=== PATIENT | male | born 1985 | race African-American/Black ===

== ENCOUNTER 2022-09-27 04:19 | Emergency (ER) | payer MEDICARE, MEDICAID ==
[~2022-09-27] VITALS: Ht 172.7 cm; Wt 67.0 kg
[2022-09-27] MEDS ORDERED: ACETAMINOPHEN 325MG TABLET PO STA (05:11)
[2022-09-27] MEDS ORDERED: SODIUM CHLORIDE 0.9% 1000ML BAG (SEPSIS BOLUS) IV ONE (05:15)
[2022-09-27] MEDS ORDERED: CEFTRIAXONE 1 G PREMIX 50 ML IV ONE (05:15)
[2022-09-27 06:07] LABS: BASOPHILS % 0.7 % (0.0-2.0); EOSINOPHILS % 3.6 % (0.0-5.0); HEMATOCRIT. 42.9 % (42.0-52.0); HEMOGLOBIN. 13.9 g/dL (14.0-18.0); LYMPHOCYTES % 19.3 % (20.0-50.0); MEAN CORPUSCULAR HEMOGLOBIN 26.1 pg (28.0-32.0); MEAN CORPUSCULAR VOLUME 80.4 fL (80.0-94.0); MEAN PLATELET VOLUME 7.4 fl (7.4-10.4); MONOCYTES % 9.9 % (2.0-8.0); NEUTROPHILS % 66.5 % (40.0-76.0); PLATELET 332 x1000/uL (130-400); RED BLOOD CELL COUNT 5.34 mill/uL (4.7-6.1); RED CELL DISTRIBUTION WIDTH 14.3 % (11.6-14.6)
[2022-09-27 06:14] LABS: CHLORIDE 101 mEq/L (98-107)
[2022-09-27 06:17] LABS: INR 1.1; PROTHROMBIN TIME 12.2 sec (9.6-11.0)
[2022-09-27 06:23] LABS: ETHANOL BLOOD < 10 mg/dL
[2022-09-27] MEDS ORDERED: ACET-2708 MT (08:59)
[2022-09-27] MEDS ORDERED: SULF1TAB48 MT (08:59)
[2022-09-27 09:15] VITALS: BP 120/82
== END 2022-09-27 09:13 | disposition home or self-care (01) ==
LOC: ER 04:19 → CANBEDREQ 09:55
DX: L03.115 Cellulitis of right lower limb (principal); I49.8 Other specified cardiac arrhythmias; F43.10 Post-traumatic stress disorder, unspecified; F60.9 Personality disorder, unspecified; F17.210 Nicotine dependence, cigarettes, uncomplicated
CPT/HCPCS: 36415; 73610; 80053; 80320; 83605; 84145; 85025; 85610; 93005; 96365; 96366; 99285; J0696; J7030; G0480

== ENCOUNTER 2022-09-29 23:35 | Emergency (ER) | payer MEDICARE, MEDICAID ==
[~2022-09-29] VITALS: Ht 175.3 cm; Wt 73.0 kg
[~2022-09-29 23:35] MED LIST: ACET-2708 MT; SULF1TAB48 MT
[2022-09-30] MEDS ORDERED: IBUPROFEN 600MG TABLET PO ONE (00:30)
[2022-09-30] MEDS ORDERED: CEPHALEXIN 250MG CAPSULE PO ONE (00:30)
[2022-09-30 00:35] LABS: EOSINOPHILS % 11.1 % (0.0-5.0); HEMATOCRIT. 40.8 % (42.0-52.0); HEMOGLOBIN. 13.4 g/dL (14.0-18.0); LYMPHOCYTES % 32.6 % (20.0-50.0); MEAN CORPUSCULAR HEMOGLOBIN 26.3 pg (28.0-32.0); MEAN CORPUSCULAR VOLUME 80.3 fL (80.0-94.0); MEAN PLATELET VOLUME 7.2 fl (7.4-10.4); NEUTROPHILS % 45.3 % (40.0-76.0); PLATELET 308 x1000/uL (130-400); RED BLOOD CELL COUNT 5.08 mill/uL (4.7-6.1); RED CELL DISTRIBUTION WIDTH 14.2 % (11.6-14.6)
[2022-09-30 00:42] LABS: CHLORIDE 101 mEq/L (98-107)
[2022-09-30] MEDS ORDERED: CEPH500T MT (00:49)
[2022-09-30] MEDS ORDERED: IBUP-2029 MT (00:49)
[2022-09-30] MEDS ORDERED: CEPHALEXIN 250MG CAPSULE PO NR (02:30)
[2022-09-30] MEDS ORDERED: IBUPROFEN 600MG TABLET PO NR (02:30)
[2022-09-30 02:50] VITALS: BP 124/72
== END 2022-09-30 03:36 | disposition home or self-care (01) ==
LOC: ER 23:49
DX: L03.115 Cellulitis of right lower limb (principal); F12.10 Cannabis abuse, uncomplicated
CPT/HCPCS: 36415; 80048; 85025; 99284

== ENCOUNTER 2022-09-30 03:23 | Emergency (ER) | payer MEDICARE, MEDICAID ==
[~2022-09-30] VITALS: Ht 162.6 cm; Wt 81.0 kg
[~2022-09-30 03:23] MED LIST changes: +CEPH500T MT; +IBUP-2029 MT
[2022-09-30 13:50] VITALS: BP 131/72
== END 2022-09-30 15:07 | disposition home or self-care (01) ==
LOC: ER 03:23
DX: Z13.9 Encounter for screening, unspecified (principal)
CPT/HCPCS: 99281